=== PATIENT | male | born 1940 | race Caucasian/White ===

== ENCOUNTER → 2023-12-17 11:17 | Outpatient (REF) | payer MEDICARE, SELFPAY | LOC: DHCBC/DCA 11:17 | PROVIDERS: ATTENDING PHYSICIAN Internal Medicine Cardiovascular Disease; FAMILY PHYSICIAN Emergency Medicine | DX: I42.9 Cardiomyopathy, unspecified (principal); I10 Essential (primary) hypertension; R06.02 Shortness of breath | CPT/HCPCS: 78452; 93017; A9500; J2785 ==

== ENCOUNTER → 2024-05-18 10:56 | Outpatient (REF) | payer MEDICARE, SELFPAY ==
[2024-05-18 12:06] LABS: % Basophils 0.8 % (0-2); % Eosinophils 6.5 % (0-6); % Lymphocytes 11.4 % (20.5-51.1); % Monocytes 8.6 % (1.7-9.3); % Neutrophils 72.7 % (42.2-75.2); Absolute Eosinophils 0.3 10^3/uL (0-0.7); Absolute Lymphocytes 0.4 10^3/uL (1.2-3.4); Absolute Monocytes 0.3 10^3/uL (0.1-0.6); Absolute Neutrophils 2.8 10^3/uL (1.4-6.5); Mean Corp Hgb Conc. 34.4 g/dL (33.0-37.0); Mean Corpuscular Hgb 33.5 pg (27.0-31.0); Mean Corpuscular Volume 97.6 fL (80.0-94.0); Mean Platelet Volume 9.3 fL (7.4-10.4); Nucleated Red Blood Cells % 0 % (-); Platelet Count 177 10^3/uL (130-400); Red Blood Cell Count 3.28 10^6/uL (4.70-6.10); Red Cell Dist. Width 13.2 % (11.5-14.5); White Blood Cell Count 3.9 10^3/uL (4.8-10.8)
[2024-05-18 12:47] LABS: PSA, Total - Diagnostic < 0.06 ng/ml (0.0-4.0)
== END ==
LOC: REG 10:56
PROVIDERS: ATTENDING PHYSICIAN Internal Medicine Cardiovascular Disease; FAMILY PHYSICIAN Emergency Medicine; OTHER PHYSICIAN Family Medicine Geriatric Medicine; OTHER PHYSICIAN Internal Medicine Hematology & Oncology
DX: I42.9 Cardiomyopathy, unspecified (principal); I42.8 Other cardiomyopathies; I51.7 Cardiomegaly; C61 Malignant neoplasm of prostate; Z79.818 Long term (current) use of other agents affecting estrogen receptors and estrogen levels; C64.9 Malignant neoplasm of unspecified kidney, except renal pelvis
CPT/HCPCS: 36415; 84153; 84270; 84402; 84403; 85025; 93306

== ENCOUNTER 2024-11-27 12:15 | Emergency (ER) | payer MEDICARE, SELFPAY ==
[2024-11-27 12:16] VITALS: BP 157/87
[2024-11-27 12:34] LABS: % Basophils 1.1 % (0-2); % Eosinophils 8.9 % (0-6); % Lymphocytes 16.6 % (20.5-51.1); % Neutrophils 65.4 % (42.2-75.2); Absolute Eosinophils 0.3 10^3/uL (0-0.7); Absolute Lymphocytes 0.6 10^3/uL (1.2-3.4); Absolute Monocytes 0.3 10^3/uL (0.1-0.6); Absolute Neutrophils 2.3 10^3/uL (1.4-6.5); Hematocrit 34.3 % (39.0-52.0); Hemoglobin 11.8 g/dL (13.0-18.0); Mean Corp Hgb Conc. 34.4 g/dL (33.0-37.0); Mean Corpuscular Hgb 32.5 pg (27.0-31.0); Mean Corpuscular Volume 94.5 fL (80.0-94.0); Nucleated Red Blood Cells % 0 % (-); Platelet Count 154 10^3/uL (130-400); Red Blood Cell Count 3.63 10^6/uL (4.70-6.10); Red Cell Dist. Width 12.9 % (11.5-14.5); White Blood Cell Count 3.5 10^3/uL (4.8-10.8)
[2024-11-27 12:58] LABS: ALT (SGPT) 12 U/L (0-50); AST (SGOT) 20 U/L (17-59); Albumin 4.2 g/dl (3.5-5.0); Alkaline Phosphatase 62 U/L (38-126); Blood Urea Nitrogen 42 mg/dl (9-20); Calcium 9.3 mg/dl (8.4-10.2); Carbon Dioxide 25 mmol/L (22-30); Chloride 103 mmol/L (98-107); Glucose 130 mg/dl (70-99); Potassium 4.8 mmol/L (3.5-5.1); Sodium 138 mmol/L (135-145); Total Bilirubin 0.8 mg/dl (0.2-1.3); Total Protein 6.7 g/dl (6.3-8.2); eGFR 34.14
[2024-11-27 13:09] VITALS: BP 160/93
[2024-11-27 13:14] VITALS: BMI 24.4
--- NOTE | 2024-11-27 13:49 | ED.CVA ---
History of Present Illness
General
Chief Complaint: CVA/TIA Symptoms
Source: patient
Exam Limitations: none
Time Seen by Provider: 11/27/24 13:26
Onset of Stroke Symptoms
Onset of symptoms known: No
Time pt last seen normal is known: No
History of Present Illness
History of Present Illness:
84-year-old male presents with onset of subtle dizziness and left-sided weakness starting this morning at 7 AM. He stated that he felt like he was veering off to the left when he tried walk. The symptoms lasted several minutes then resolved. He
had very similar symptomatology 4 days ago same thing happened in the morning and resolved after minutes. Currently he denies no headache vision change neck pain chest pain or shortness of breath. He denies any unilateral weakness. There has been
no fever. 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 This was treated in [place]. Is currently on 75 mg of Plavix once a day. He also has a history of left renal cell cancer resulting left
nephrectomy. He has 1 remaining kidney. He does not take aspirin product currently.
Past History
Past History
ED Past Medical History: CVA and Other (Kidney cancer, 'balance issues')
ED Past Surgical History: Cholecystectomy and Urological (L nephrectomy)
Social History
Tobacco: Non-smoker
Alcohol: Occasional
Drug: None
Personal:
Living: with family
Phy Exam
Physical Exam
Physical Exam:
General: Well-appearing male no acute respiratory distress
HEENT: Normocephalic atraumatic face is symmetric
Heart: Regular rate and rhythm no murmurs
Lungs: Clear no wheeze
Neurologic exam: Alert finger-nose [id number] intact no drift on exam. Good sensation to both upper and lower extremities visual ndiaye intact extraocular motions are intact. No facial asymmetry dysarthria or aphasia.
Extremities: No cyanosis
Course
Orders/Labs/Results
Orders:
Orders
11/27/24 12:22
CT Head W/o Iv Contrast Urgent
Comment:
Reason For Exam: weakness, resolved
11/27/24 12:26
CMP [Comprehensive Metabolic Panel] Urgent
Cardiovascular Evaluation Urgent
Comment: ADD ON
Complete Blood Count/With Diff Urgent
11/27/24 13:40
Electrocardiogram (*1) Urgent
Reason for Study: TIA/Stroke
EKG- Treatment ONCE
11/27/24 14:14
NEUROLOGY CONSULT Urgent
Consulting Provider: Ancelmo Waters
Was physician already notified: Yes
Reason for consult: left leg weakness
MRI Brain [MR Brain Without Contrast] Urgent
Comment:
Reason For Exam: dizziness, left leg weakness
Recent pill cam endoscopy?: No
11/27/24 14:27
MA [place] [facility] [place] [facility] Routine
Comment:
Reason For Exam: intracranial stenosis
Recent pill cam endoscopy?: No
MA Neck With Contrast Routine
Comment:
Reason For Exam: stenosis
Recent pill cam endoscopy?: No
11/27/24 14:48
Add On- LAB Urgent
Tests Added?: Lipid Profile
Abnormal Lab Results
11/27/24
12:26
WBC 3.5 L 10^3/uL
(4.8-10.8)
RBC 3.63 L 10^6/uL
(4.70-6.10)
Hgb 11.8 L g/dL
(13.0-18.0)
Hct 34.3 L %
(39.0-52.0)
MCV 94.5 H fL
(80.0-94.0)
MCH 32.5 H pg
(27.0-31.0)
Absolute Lymphs (auto) 0.6 L 10^3/uL
(1.2-3.4)
Lymphocytes % 16.6 L %
(20.5-51.1)
Eosinophils % 8.9 H %
(0-6)
BUN 42 H mg/dl
(9-20)
Creatinine 1.9 H mg/dL
(0.7-1.3)
Glucose 130 H mg/dl
(70-99)
11/27/24 12:26
11/27/24 12:26
Vital Signs
Initial and Last Documented VS:
Initial Vital Signs
Temp Pulse Resp BP Pulse Ox
97.2 F 73 16 157/87 100
11/27/24 12:16 11/27/24 12:16 11/27/24 12:16 11/27/24 12:16 11/27/24 12:16
Last Documented Vital Signs
Temp Pulse Resp BP Pulse Ox
97.2 F 79 27 152/90 99
11/27/24 12:16 11/27/24 14:30 11/27/24 14:30 11/27/24 14:00 11/27/24 14:00
MDM/Problems Addressed
Differential Diagnosis Includes:
Dizziness with associated left leg weakness that has since resolved. History of stroke and left nephrectomy which does complicate today's care. Concern for TIA symptoms versus electrolyte abnormality versus anemia. Normal neurologic exam
currently CT performed today of the head demonstrates old right-sided MCA stroke. Reviewed labs. He has baseline creatinine of 1.9. EKG pending. Discussed with emergency room attending as well as neurology.
*Critical Care Note
Total Time (30-74mins, 75-104mins- exclusive of procedures): Not Applicable
Update Note
Update Note:
Discussed case with neurology. Neurology and to see patient. MRA of the head and neck as well as MRI of the brain were ordered. No acute findings were noted by radiologist. After discussing with neurology. Will still start aspirin 81 mg for 3
weeks on top of his 75 mg Plavix. Patient still symptom-free. No indication for admission at this time. I suspect TIA like symptoms with left leg numbness or weakness. Stable for discharge
ED Attending Note
-
Portions of this chart may have been created with voice recognition software.� Occasional wrong word or��sound alike� substitutions may have occurred due to the inherent limitations of voice recognition software.
Discharge Plan
Departure
Patient Disposition: Home (Routine Discharge)
Date of Disposition: 11/27/24
Time of Disposition: 18:56
Patient with high blood pressure during this ER visit?: No
Discharge Problem:
Brain TIA
Prescriptions:
No Action
clopidogrel 75 MG tablet
75 mg PO DAILY
febuxostat 40 MG tablet
40 mg PO DAILY
multivitamin with folic acid [Tab-A-Vania] 1 TABLET tablet
1 tab PO DAILY
tamsulosin 0.4 mg Capsule
0.4 mg PO BID
Referrals:
Liya Encinas MD [Family Provider] -
Activity Restrictions/Additional Instructions:
Please add 81 mg of aspirin daily on top of your current medications. Return here for worsening symptoms otherwise follow-up with your doctor
Interventions
Interventions:
*Risk Screen - Suicide Last Done: 11/27/24 12:16
*General Assessment Last Done: 11/27/24 12:16
*Neglect/Abuse Screening Last Done: 11/27/24 12:16
*ED COVID-19 Vaccine History Last Done: 11/27/24 12:16
ED- Pulmonary Assessment Last Done: 11/27/24 13:14
ED- Neurological Assessment Last Done: 11/27/24 13:14
ED- Cardiac Assessment Last Done: 11/27/24 13:14
ED Swallowing Screen Last Done: 11/27/24 13:14
Discharge Date and Time
Print Language: ROMANSH
[2024-11-27 14:00] VITALS: BP 152/90
--- NOTE | 2024-11-27 15:26 | CON.NEURO4 ---
Addendum entered and electronically signed by Ancelmo Waters MD 11/27/24 16:23:
Studies reviewed.
I have personally examined the patient. I reviewed and agree with the ELECTRIC TAPE SLITTER's Note.
My addenda:
Awake, alert, interactive. No acute distress.
Speech intact.
Follows 2-step requests w/o difficulty. No tremor.
Extra-ocular movements grossly intact.
Facial movements full and symmetric. Hearing intact to normal conversational volume.
Normal UE movements bilaterally.
Neck: full ROM.
Chest: no dyspnea
Heart: no JVD
Ext: (-) Clubbing, (-) Cyanosis, (-) Edema
IMPRESSIONS/RECOMMENDATIONS:
Abrupt onset of left leg weakness, recurrent
MRI of brain to my review suggests subacute right MCA territory ischemic stroke
check MRI of brain (completed)
check MRA head and neck
check lipid profile, add Atorvastatin 40 mg QHS if LDL > 70
continue Clopidogrel
add aspirin 81 mg daily x 21 days then discontinue despite renal concerns to reduce risk of future event
low yield to Echo, can check Holter monitor as outpatient
Will continue to follow pending results.
Original Note:
Consultation - Neurology 4
-
CONSULTING PHYSICIAN: Dr. Ancelmo Waters
REFERRING PHYSICIAN: Darell Riggs
DICTATED BY: PALMA Greenfield
DATE/TIME OF REQUEST: 11/27/2024 1350
DATE/TIME OF CONSULTATION: 11/27/2024
Reason for Consultation: left sided weakness
History of Present Illness:
This is an 84-year-old right-handed male patient with a past medical history of renal cell carcinoma status post left nephrectomy, kidney disease stage III, gout, cardiomyopathy, CAD, benign prostatic hypertrophy, cholelithiasis, cholecystectomy,
nephrolithiasis, diverticulosis, stroke 25 years ago in [place], hemorrhoids and prostate cancer who presented to the ER today 11/27/2024 for transient left lower extremity weakness. He reports the first time he had left-sided weakness was about 4
days ago. He was waking up sitting to the side of the bed when he went to get up he reported he was unsteady and sat back down he then noticed when he tried to get up again he had left lower extremity weakness. After walking about 10-15 steps
weakness resolved. He also reported some associated dizziness. He reported he gone to bed about 1 AM the night before and woke up around 11 AM. Today was a second event which presented very similarly. He reports last night he went to bed at
around 11 PM and woke up around 7 AM. He was again sitting at the side of the bed had difficulty getting up had to sit back down when he got up the second time felt left leg weakness and unsteady gait leaning to the left until he took about 10-15
steps. He reports about 25 years ago while he was in [place] he also had left-sided weakness and some hearing distortion and was diagnosed with stroke. Stroke was caused by carotid dissection. He has been taking Plavix but he has not been taking
aspirin due to kidney disease. He does report over the past week he has had some ear clogging and does feel that this may be related to that and balance he may be having. He denied any right lower extremity weakness or bilateral upper extremity
weakness. He denied any headache trouble with speech or confusion.
Past Medical History: Renal cell carcinoma status post left nephrectomy, kidney disease stage III, gout, cardiomyopathy, CAD, benign prostatic hypertrophy, cholelithiasis, cholecystectomy, nephrolithiasis, diverticulosis, stroke 25 years ago in
[place], hemorrhoids and prostate cancer
Surgical History: Left nephrectomy, cholecystectomy
Family History: Reviewed and noncontributory
Social History: Retired. Non-smoker occasional alcohol use .
Allergies: See below
Home Medications: See below
Review of Symptoms:
Patient denies any fever, headache, chest pain, GI or symptoms. Has chronic shortness of breath
Vital Signs: See below
Physical Exam:
The patient is afebrile, heart sounds S1 and S2 are regular and chest is clear to auscultation bilaterally.
Neurologic Examination:
The patient is awake, alert and oriented x 3. He is able to follow commands and answer questions appropriately. There is no aphasia or dysarthria. On cranial nerve assessment, pupils are 3 mm bilateral, round and reactive to light and
accommodation. Visual ndiaye are full. Extraocular movements are intact. Facial sensations are intact and bilaterally symmetrical, there is no facial asymmetry. Hearing is intact bilaterally to normal conversation volume. Tongue palate and uvula
are midline. Sternocleidomastoid strengths are full bilaterally. Motor strengths are 5/5 bilateral upper and lower extremities on medical research [place] scale. There is no drift or involuntary movement noted. Deep tendon reflexes are 2+ bilateral
upper and lower extremities and Babinski is absent bilaterally. Sensations of pain, touch, temperature and vibration are intact and bilaterally symmetrical. There was no extinction noted on double simultaneous stimulation. Coordination is intact by
finger to nose bilaterally Past point LUE on finger to nose.
Lab Results: See below
Neuro Imaging:
Impression:
IRMA WATERS is a 84 year old M who has presented to the hospital with transient left lower extremity weakness and dizziness. Differential diagnosis includes TIA versus stroke vs recrudesce of old stroke symptoms.
Recommendations:
-MRI brain
-MRI head and neck
-Continue Plavix, may need additional aspirin for 21 days if okay with nephrology
-Check LDL and hemoglobin A1c
-PT evaluation
-Goal normotension
-Goal normoglycemia
-Provide stroke education
-Rest of medical management per primary care team if he is admitted, if MRI's are negative likely can be discharged from the ER
Discussed patient care with patient and Dr. Christian
Medication and Allergies
Home Medications
Home Medications
�Medication �Instructions �Recorded
clopidogrel 75 mg tablet 75 mg PO DAILY 09/20/13
febuxostat 40 mg tablet 40 mg PO DAILY 01/26/18
multivitamin with folic acid 400 1 tab PO DAILY 01/26/18
mcg tablet (Tab-A-Vania)
tamsulosin 0.4 mg capsule 0.4 mg PO BID 10/13/23
Allergies
Allergies
Allergy/AdvReac Type Severity Reaction Status Date / Time
amoxicillin Allergy Unknown Verified 11/27/24 12:21
allopurinol AdvReac Itching Verified 11/27/24 12:21
Vital Signs / Labs
-
Vital Signs and Labs:
Temp Pulse Resp BP Pulse Ox
97.2 F 79 27 152/90 99
11/27/24 12:16 11/27/24 14:30 11/27/24 14:30 11/27/24 14:00 11/27/24 14:00
11/27/24 12:26
11/27/24 12:26
11/27/24
12:26
WBC 3.5 L
RBC 3.63 L
Hgb 11.8 L
Hct 34.3 L
MCV 94.5 H
MCH 32.5 H
Absolute Lymphs (auto) 0.6 L
Lymphocytes % 16.6 L
Eosinophils % 8.9 H
BUN 42 H
Creatinine 1.9 H
Glucose 130 H
[2024-11-27 15:36] LABS: HDL Cholesterol 76 mg/dl; LDL Cholesterol, Calculated 66 mg/dl; Total Cholesterol 164 mg/dl (50-199); Triglyceride 114 mg/dl (10-149); Very Low Density Lipoprotein 22 mg/dl (0-30)
[2024-11-27 19:19] VITALS: BP 158/77
== END 2024-11-27 19:26 | disposition home or self-care (01) ==
LOC: EMR 12:15
PROVIDERS: Student in an Organized Health Care Education/Training Program; CONSULT PHYSICIAN Psychiatry & Neurology Neurology; EMERGENCY PHYSICIAN Emergency Medicine; FAMILY PHYSICIAN Emergency Medicine
DX: G45.9 Transient cerebral ischemic attack, unspecified (principal); I25.10 Atherosclerotic heart disease of native coronary artery without angina pectoris; I42.9 Cardiomyopathy, unspecified; N40.0 Benign prostatic hyperplasia without lower urinary tract symptoms; Z79.02 Long term (current) use of antithrombotics/antiplatelets; Z79.82 Long term (current) use of aspirin; Z79.899 Other long term (current) drug therapy; Z85.46 Personal history of malignant neoplasm of prostate; Z85.528 Personal history of other malignant neoplasm of kidney; Z86.73 Personal history of transient ischemic attack (TIA), and cerebral infarction without residual deficits; Z87.19 Personal history of other diseases of the digestive system; Z87.442 Personal history of urinary calculi; Z90.49 Acquired absence of other specified parts of digestive tract; Z90.5 Acquired absence of kidney
CPT/HCPCS: 99284; 70450; 70544; 70548; 70551; 80053; 80061; 85025; 93005; A9585

== ENCOUNTER → 2024-11-30 08:05 | Outpatient (REF) | payer MEDICARE, SELFPAY | LOC: RAD 08:05 | PROVIDERS: ATTENDING PHYSICIAN Specialist; FAMILY PHYSICIAN Emergency Medicine | DX: N40.1 Benign prostatic hyperplasia with lower urinary tract symptoms (principal) | CPT/HCPCS: 76775 ==